=== PATIENT | female | born 1975 | race Two or more races ===

== ENCOUNTER 2017-12-01 13:50 | Outpatient (CLI) | payer OTHER | END 2017-12-01 13:59 | disposition home or self-care (01) | LOC: LAB 13:50 | DX: R50.9 Fever, unspecified (principal) ==

== ENCOUNTER → 2017-12-01 | Outpatient (CLI) | payer OTHER ==
[~2017-12-01] MED LIST: AMOX1TAB12 PO; DECADRON P4 MG/ML-1M IH; FLOVENT 44MCG7.9 GM; GILTUSS TR TAB1 EACH PO; PROVENTIL HFA6.7 GM; ROCEPHIN1 G/VIAL IJ; SINGULAIR10 MG; TENCON CAPSULE1 CAP PO; TORADOL60 MG IM; VOLTAREM 50 MG PO; ZYRTEC10 MG PO
== END | disposition home or self-care (01) ==
LOC: PPHC 12:35
DX: J06.9 Acute upper respiratory infection, unspecified (principal)

== ENCOUNTER → 2017-12-09 | Outpatient (CLI) | payer OTHER | END | disposition home or self-care (01) | LOC: PPHC 12:21 | DX: T63.2X1A Toxic effect of venom of scorpion, accidental (unintentional), initial encounter (principal); Y92.098 Other place in other non-institutional residence as the place of occurrence of the external cause ==

== ENCOUNTER → 2018-04-04 | Emergency (ER) | payer OTHER ==
[~2018-04-04] VITALS: Ht 154.9 cm; Wt 72.6 kg
== END | disposition home or self-care (01) ==
LOC: ER 18:48
DX: R07.89 Other chest pain (principal); F06.4 Anxiety disorder due to known physiological condition

== ENCOUNTER 2018-04-24 07:40 | Emergency (ER) | payer OTHER ==
[~2018-04-24] VITALS: Ht 157.5 cm; Wt 77.1 kg
== END 2018-04-24 20:55 | disposition home or self-care (01) ==
LOC: ER 07:40
DX: R06.02 Shortness of breath (principal); T36.8X5A Adverse effect of other systemic antibiotics, initial encounter; Y92.89 Other specified places as the place of occurrence of the external cause

== ENCOUNTER 2018-09-06 13:45 | Emergency (ER) | payer OTHER ==
[~2018-09-06] VITALS: Ht 154.9 cm; Wt 87.1 kg
== END 2018-09-06 19:27 | disposition home or self-care (01) ==
LOC: ER 13:45
DX: R10.2 Pelvic and perineal pain (principal); N92.5 Other specified irregular menstruation

== ENCOUNTER → 2018-10-17 | Emergency (ER) | payer OTHER ==
[~2018-10-17] VITALS: Ht 154.9 cm; Wt 74.4 kg
== END | disposition home or self-care (01) ==
LOC: ER 23:50
DX: F06.4 Anxiety disorder due to known physiological condition (principal)

== ENCOUNTER 2019-01-05 06:50 | Emergency (ER) | payer OTHER ==
[~2019-01-05] VITALS: Ht 154.9 cm; Wt 87.5 kg
[2019-01-05] MEDS ORDERED: ZITHROMAX500 MG PO (11:40)
[2019-01-05] MEDS ORDERED: MEDROLPACK PO (11:40)
[2019-01-05] MEDS ORDERED: MUCINEX DM ER1 EAC1 PO (11:40)
[2019-01-05] MEDS ORDERED: IPRAT-ALBUT 0.5-3 ML IH (11:40)
[2019-01-05] MEDS ORDERED: BUDESONIDE0.5 MG/2 M IH (11:40)
[2019-01-05] MEDS ORDERED: TESSALON PERLE100 M1 PO (11:40)
== END 2019-01-05 12:10 | disposition home or self-care (01) ==
LOC: ER 06:50
DX: J06.9 Acute upper respiratory infection, unspecified (principal)

== ENCOUNTER 2019-04-05 07:15 | Outpatient (CLI) | payer OTHER ==
[~2019-04-05 07:15] MED LIST changes: +BUDESONIDE0.5 MG/2 M IH; +IPRAT-ALBUT 0.5-3 ML IH; +MEDROLPACK PO; +MUCINEX DM ER1 EAC1 PO; +TESSALON PERLE100 M1 PO; +ZITHROMAX500 MG PO
== END 2019-04-05 08:16 | disposition home or self-care (01) ==
LOC: SONOGRAMA 07:15
DX: M71.521 Other bursitis, not elsewhere classified, right elbow (principal)

== ENCOUNTER → 2020-01-30 15:16 | Outpatient (CLI) | payer OTHER ==
[~2020-01-30 15:16] MED LIST changes: +LOSARTAN POTASS50 MG PO
== END | disposition home or self-care (01) ==
LOC: LAB 15:16
PROVIDERS: ATTEND Obstetrics & Gynecology
DX: N95.1 Menopausal and female climacteric states (principal); E28.39 Other primary ovarian failure; E04.1 Nontoxic single thyroid nodule; E55.9 Vitamin D deficiency, unspecified; E78.00 Pure hypercholesterolemia, unspecified

== ENCOUNTER 2020-01-30 22:40 | Emergency (ER) | payer OTHER ==
[~2020-01-30] VITALS: Ht 154.9 cm; Wt 90.7 kg
[~2020-01-30 22:40] MED LIST changes: -LOSARTAN POTASS50 MG PO
[2020-01-31] MEDS ORDERED: LOSARTAN POTASS50 MG PO (02:32)
== END 2020-01-31 02:41 | disposition home or self-care (01) ==
LOC: ER 22:40
DX: I16.0 Hypertensive urgency (principal); I10 Essential (primary) hypertension